=== PATIENT | male | born 2000 | race Caucasian/White ===

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

== ENCOUNTER 2018-09-03 18:48 | Emergency (ER) | payer OTHER ==
[2018-09-03] MEDS: NAPROXEN 250 MG TAB PO (20:07)
== END 2018-09-03 20:10 | disposition home or self-care (01) ==
LOC: M ED 18:48
DX: S39.012A Strain of muscle, fascia and tendon of lower back, initial encounter (principal); M62.830 Muscle spasm of back; X50.0XXA Overexertion from strenuous movement or load, initial encounter; Y92.098 Other place in other non-institutional residence as the place of occurrence of the external cause
CPT/HCPCS: 99282